=== PATIENT | male | born 1975 | race Caucasian/White ===

== ENCOUNTER 2019-09-14 17:57 | Emergency (ER) | payer MEDICAID, OTHER ==
[~2019-09-14] VITALS: Ht 188 cm; Wt 81.6 kg
[2019-09-14 18:11] VITALS: BP 138/76
[2019-09-14] MEDS ORDERED: TDAP [DIPH/PERTUSSIS/TET] 0.5 ML VIAL IM ONE ×2 (18:24→18:30)
--- NOTE | 2019-09-14 18:33 | NUR ---
REFUSED TDAP,SWATI FIGUEROA AWARE
== END 2019-09-14 18:34 | disposition home or self-care (01) ==
LOC: ER 18:02
DX: S61.206A Unspecified open wound of right little finger without damage to nail, initial encounter (principal); L03.011 Cellulitis of right finger; F17.200 Nicotine dependence, unspecified, uncomplicated; W22.8XXA Striking against or struck by other objects, initial encounter; Y93.89 Activity, other specified; Y92.89 Other specified places as the place of occurrence of the external cause; Y99.8 Other external cause status
CPT/HCPCS: 90715

== ENCOUNTER 2022-06-04 12:03 | Emergency (ER) | payer MEDICAID, OTHER ==
[~2022-06-04] VITALS: Ht 188 cm; Wt 81.6 kg
[2022-06-04 12:13] VITALS: BP 106/80
== END 2022-06-04 13:13 ==
LOC: ER 12:09
DX: Z02.89 Encounter for other administrative examinations (principal); F19.10 Other psychoactive substance abuse, uncomplicated; F17.200 Nicotine dependence, unspecified, uncomplicated